=== PATIENT | female | born 1960 | race African-American/Black ===

== ENCOUNTER 2017-10-28 11:45 | Inpatient (IN) ==
[2017-11-01 16:10] VITALS: BP 99/63
== END 2017-11-01 17:00 | disposition home or self-care (01) | DRG 309 ==
LOC: INTOOBSV 20:30 → N.CC 20:30 → N.TELES 10-30 17:54
PROVIDERS: ADMIT Internal Medicine Clinical Cardiac Electrophysiology; ATTEND Internal Medicine Clinical Cardiac Electrophysiology

== ENCOUNTER 2018-08-16 17:03 | Observation (INO) ==
[2018-08-16] MEDS ORDERED: MORPHINE 4 MG/1 ML VIAL IV STA (18:10)
[2018-08-16] MEDS ORDERED: NITROGLYCERIN 2% OINT 1 INCH/GM PACK TOP STA (18:10)
[2018-08-16] MEDS ORDERED: ONDANSETRON 4 MG/2 ML VIAL IV STA (18:10)
[2018-08-16] MEDS ORDERED: ALUM/MAG/SIMETH/LIDO VISC 1:1 30 ML BOTTLE PO STA (18:10)
[2018-08-16] MEDS ORDERED: ASPIRIN 325 MG TABLET PO STA (18:10)
[2018-08-16 18:28] LABS: Basophils % 0.2 % (0.0-0.8); Eosinophils # 0.3 10*3/uL (0.0-0.87); Eosinophils % 2.5 % (0.00-10.9); Hemoglobin 7.2 GM/DL (12.0-16.0); Immature Granulocytes % 0.7 %; Immature Granulocytes Absolute 0.08 #; Lymphocytes # 2.3 10*3/uL (1.4-4.0); Lymphocytes % 18.9 % (21.3-54.2); Monocytes % 9.2 % (1.7-12.7); Neutrophils % 68.5 % (38.7-73.9); Platelet Count 341 T/CUMM (130-400); Red Blood Count 2.79 MC/CUMM (3.8-5.5); Red Cell Distribution Width 15.6 % (9.3-17.3); White Blood Count 12.2 T/CUMM (4-12)
[2018-08-16 18:31] LABS: Alanine Aminotransferase 13 U/L (13-56); Albumin 3.5 G/DL (3.4-5.0); Alkaline Phosphatase 85 U/L (45-117); Aspartate Amino Transferase 7 U/L (0-37); Bilirubin,Total < 0.39 MG/DL (0.2-1.0); Blood Urea Nitrogen 27 MG/DL (7-18); Calcium 8.8 MG/DL (8.5-10.1); Glucose 127 MG/DL (74-106); Total Protein 7.4 G/DL (6.4-8.3)
[2018-08-16 18:36] LABS: PT Patient Result 10.7 SECS
[2018-08-17] MEDS ORDERED: CYCLOBENZAPRINE 10 MG TABLET PO PRN (00:36)
[2018-08-17] MEDS ORDERED: ACETAMINOPHEN 325 MG TABLET PO PRN (00:36)
[2018-08-17] MEDS ORDERED: ONDANSETRON 4 MG/2 ML VIAL IV PRN (00:36)
[2018-08-17] MEDS ORDERED: FLUTICASONE 50 MCG NASAL SPRAY 16 GM BOTTLE BOTH NARES PRN (00:36)
[2018-08-17] MEDS ORDERED: tiZANidine 4 MG TABLET PO PRN (00:36)
[2018-08-17] MEDS ORDERED: NAPROXEN 250 MG TABLET PO PRN (00:36)
[2018-08-17] MEDS ORDERED: SODIUM CHLORIDE 0.9% 1,000 ML IV SCH (00:36)
[2018-08-17] MEDS: SACUBITRIL/VALSARTAN 49-51 MG TABLET PO SCH ×3 (02:03→20:58)
[2018-08-17] MEDS: CARVEDILOL 25 MG TABLET PO SCH ×3 (02:04→20:58)
[2018-08-17 05:37] LABS: Basophils % 0.5 % (0.0-0.8); Eosinophils # 0.2 10*3/uL (0.0-0.87); Eosinophils % 3.1 % (0.00-10.9); Hematocrit 22.9 VOL% (35.7-47.0); Hemoglobin 6.7 GM/DL (12.0-16.0); Immature Granulocytes % 0.6 %; Immature Granulocytes Absolute 0.05 #; Lymphocytes # 1.6 10*3/uL (1.4-4.0); Lymphocytes % 20.8 % (21.3-54.2); Mean Corpuscular HGB Conc 29.3 GM/DL (32-36); Mean Corpuscular Volume 86.7 FL (87-102); Mean Platelet Volume 8.8 FL (9.6-12.0); Monocytes % 11.6 % (1.7-12.7); Neutrophils % 63.4 % (38.7-73.9); Platelet Count 306 T/CUMM (130-400); Red Blood Count 2.64 MC/CUMM (3.8-5.5); Red Cell Distribution Width 15.6 % (9.3-17.3); White Blood Count 7.8 T/CUMM (4-12)
[2018-08-17 06:39] LABS: Risk Ratio 1.68; Thyroid Stimulating Hormone 2.18 uIU/ml (0.358-3.74); VLDL CHOLESTEROL 13.8 MG/DL
[2018-08-17 06:54] LABS: Blood Urea Nitrogen 22 MG/DL (7-18); Calcium 8.2 MG/DL (8.5-10.1); Glucose 94 MG/DL (74-106); Troponin I < 0.015 NG/ML (0.00-0.045)
[2018-08-17] MEDS ORDERED: ENOXAPARIN 40 MG/0.4 ML SYRINGE SUBCUT SCH (09:00)
[2018-08-17] MEDS: FERROUS SULFATE 325 MG TABLET PO SCH (09:24)
[2018-08-17] MEDS: PANTOPRAZOLE 40 MG TABLET PO SCH (09:25)
[2018-08-17] MEDS: MULTIVITAMIN (CENTRUM) TABLET PO SCH (09:25)
[2018-08-17] MEDS: SERTRALINE 100 MG TABLET PO SCH (09:25)
[2018-08-17] MEDS: LORATADINE 10 MG TABLET PO SCH (09:25)
[2018-08-17] MEDS: FUROSEMIDE 20 MG TABLET PO SCH (09:25)
[2018-08-17] MEDS: MAGNESIUM OXIDE 400 MG TABLET PO SCH (09:25)
[2018-08-17] MEDS: DIGESTIVE ADVANTAGE PO SCH (09:26)
[2018-08-17 09:28] LABS: % Iron Saturation 5.9 % (18-50)
[2018-08-17] MEDS: MESALAMINE 1.5 GM PO SCH (09:30)
[2018-08-17 09:35] LABS: Folate 14.9 NG/ML (5.4-24.0)
[2018-08-17] MEDS ORDERED: SODIUM CHLORIDE 0.9% 1,000 ML IV PRN (10:10)
[2018-08-17] MEDS ORDERED: BISACODYL 5 MG TABLET PO ONE (12:00)
[2018-08-17] MEDS ORDERED: POLYETHYLENE GLYCOL POWDER 255 GM BOTTLE PO ONE (18:00)
[2018-08-17 21:34] LABS: Hematocrit 29.8 VOL% (35.7-47.0); Hemoglobin 9.1 GM/DL (12.0-16.0)
[2018-08-18 06:03] LABS: PT Patient Result 10.9 SECS
[2018-08-18 06:05] LABS: Basophils % 0.5 % (0.0-0.8); Eosinophils # 0.3 10*3/uL (0.0-0.87); Eosinophils % 3.6 % (0.00-10.9); Hematocrit 30.8 VOL% (35.7-47.0); Hemoglobin 9.3 GM/DL (12.0-16.0); Immature Granulocytes % 0.5 %; Immature Granulocytes Absolute 0.04 #; Lymphocytes # 1.8 10*3/uL (1.4-4.0); Mean Corpuscular HGB Conc 30.2 GM/DL (32-36); Mean Corpuscular Volume 88.3 FL (87-102); Mean Platelet Volume 8.8 FL (9.6-12.0); Neutrophils % 63.4 % (38.7-73.9); Platelet Count 297 T/CUMM (130-400); Red Blood Count 3.49 MC/CUMM (3.8-5.5); Red Cell Distribution Width 14.9 % (9.3-17.3); White Blood Count 8.9 T/CUMM (4-12)
[2018-08-18 06:09] LABS: Calcium 8.6 MG/DL (8.5-10.1); Osmolality,Calculated 287.8 MOS/KG (273-304)
[2018-08-18] MEDS ORDERED: LACTATED RINGERS 500 ML IV SCH (08:00)
[2018-08-18] MEDS ORDERED: LIDOCAINE 100 MG/5 ML SYRINGE ONE (09:59)
[2018-08-18] MEDS ORDERED: PROPOFOL 200 MG/20 ML VIAL IV ONE (09:59)
[2018-08-18] MEDS ORDERED: PHENYLEPHRINE 1 MG/10 ML SYRINGE IV ONE (09:59)
[2018-08-18] MEDS ORDERED: ETOMIDATE 20 MG/10 ML VIAL IV ONE (09:59)
[2018-08-18] MEDS ORDERED: POLYETHYLENE GLYCOL POWDER 255 GM BOTTLE PO ONE (12:00)
[2018-08-18] MEDS: FERROUS SULFATE 325 MG TABLET PO SCH (12:18)
[2018-08-18] MEDS: SERTRALINE 100 MG TABLET PO SCH (12:18)
[2018-08-18] MEDS: MAGNESIUM OXIDE 400 MG TABLET PO SCH (12:18)
[2018-08-18] MEDS: SACUBITRIL/VALSARTAN 49-51 MG TABLET PO SCH ×2 (12:18→21:38)
[2018-08-18] MEDS: PANTOPRAZOLE 40 MG TABLET PO SCH (12:18)
[2018-08-18] MEDS: CARVEDILOL 25 MG TABLET PO SCH ×2 (12:18→21:37)
[2018-08-18] MEDS: LORATADINE 10 MG TABLET PO SCH (12:18)
[2018-08-18] MEDS: MULTIVITAMIN (CENTRUM) TABLET PO SCH (12:18)
[2018-08-18] MEDS: FUROSEMIDE 20 MG TABLET PO SCH (12:18)
[2018-08-18] MEDS: MESALAMINE 1.5 GM PO SCH (12:19)
[2018-08-18] MEDS: DIGESTIVE ADVANTAGE PO SCH (12:19)
[2018-08-19] MEDS ORDERED: LACTATED RINGERS 500 ML IV SCH (08:00)
[2018-08-19] MEDS: FUROSEMIDE 20 MG TABLET PO SCH (09:00)
[2018-08-19] MEDS ORDERED: PROPOFOL 200 MG/20 ML VIAL IV ONE (09:00)
[2018-08-19] MEDS ORDERED: LIDOCAINE 1% 5 ML VIAL ONE (09:00)
[2018-08-19] MEDS: SACUBITRIL/VALSARTAN 49-51 MG TABLET PO SCH (09:00)
[2018-08-19] MEDS: LORATADINE 10 MG TABLET PO SCH (09:00)
[2018-08-19] MEDS: MAGNESIUM OXIDE 400 MG TABLET PO SCH (09:00)
[2018-08-19] MEDS: SERTRALINE 100 MG TABLET PO SCH (09:00)
[2018-08-19] MEDS: DIGESTIVE ADVANTAGE PO SCH (09:00)
[2018-08-19] MEDS: CARVEDILOL 25 MG TABLET PO SCH (09:00)
[2018-08-19] MEDS: FERROUS SULFATE 325 MG TABLET PO SCH (09:00)
[2018-08-19] MEDS: PANTOPRAZOLE 40 MG TABLET PO SCH (09:00)
[2018-08-19] MEDS: MESALAMINE 1.5 GM PO SCH (09:00)
[2018-08-19] MEDS: MULTIVITAMIN (CENTRUM) TABLET PO SCH (09:00)
[2018-08-19 12:25] LABS: % Iron Saturation 11.4 % (18-50); Ferritin 255.3 ng/ml (8-252)
[2018-08-19 13:15] LABS: Folate > 24.0 NG/ML (5.4-24.0); Vitamin B12 371 PG/ML (211-911)
[2018-08-19 16:06] VITALS: BP 112/71
== END 2018-08-19 17:00 | disposition home or self-care (01) ==
LOC: EDUNIT# → N.EDINP 17:03 → N.ED 17:03 → SUATTDRO 19:34 → N.TELES 23:10
PROVIDERS: ADMIT Internal Medicine; ATTEND Hospitalist
PROC: COLONBX (2018-08-18 08:35)

== ENCOUNTER 2018-09-06 19:03 | Inpatient (IN) ==
[2018-09-06 20:29] LABS: Basophils % 0.5 % (0.0-0.8); Eosinophils # 0.2 10*3/uL (0.0-0.87); Eosinophils % 2.7 % (0.00-10.9); Hematocrit 30.3 VOL% (35.7-47.0); Hemoglobin 9.5 GM/DL (12.0-16.0); Immature Granulocytes % 0.2 %; Immature Granulocytes Absolute 0.02 #; Lymphocytes # 2.2 10*3/uL (1.4-4.0); Lymphocytes % 26.2 % (21.3-54.2); Mean Corpuscular HGB Conc 31.4 GM/DL (32-36); Mean Corpuscular Volume 84.9 FL (87-102); Mean Platelet Volume 9.3 FL (9.6-12.0); Monocytes % 7.8 % (1.7-12.7); Neutrophils % 62.6 % (38.7-73.9); Platelet Count 370 T/CUMM (130-400); Red Blood Count 3.57 MC/CUMM (3.8-5.5); Red Cell Distribution Width 15.1 % (9.3-17.3); White Blood Count 8.6 T/CUMM (4-12)
[2018-09-06 20:53] LABS: Alanine Aminotransferase 15 U/L (13-56); Albumin 3.4 G/DL (3.4-5.0); Alkaline Phosphatase 97 U/L (45-117); Aspartate Amino Transferase 9 U/L (0-37); Bilirubin,Total < 0.39 MG/DL (0.2-1.0); Blood Urea Nitrogen 26 MG/DL (7-18); Calcium 9.5 MG/DL (8.5-10.1); Glucose 114 MG/DL (74-106); Osmolality,Calculated 286.3 MOS/KG (273-304); Total Protein 8.1 G/DL (6.4-8.3)
[2018-09-06 21:08] LABS: Barbiturates Screen,Urine Negative (Negative); Benzodiazepines Screen,Urine Negative (Negative); Cannabinoid Screen,Urine Negative (Negative); Opiate Screen,Urine Negative (Negative); Phencyclidine Screen,Urine Negative (Negative)
[2018-09-06] MEDS ORDERED: AMIODARONE INJ 450 MG in DEXTROSE 5% 241 ML IV SCH (23:45)
[2018-09-06] MEDS ORDERED: AMIODARONE INJ 150 MG in DEXTROSE 5% 100 ML IV ONE (23:54)
[2018-09-06] MEDS ORDERED: MAGNESIUM SULF RIDER 2 GM in PREMIX 1 EACH IV PRN (23:57)
[2018-09-06] MEDS ORDERED: POTASSIUM CHLORIDE 20 MEQ TABLET PO STA (23:57)
[2018-09-06] MEDS ORDERED: MAGNESIUM SULF RIDER 4 GM in PREMIX 1 EACH IV PRN (23:57)
[2018-09-07] MEDS ORDERED: AMIODARONE 450 MG/9 ML VIAL IV ONE (00:11)
[2018-09-07] MEDS ORDERED: AMIODARONE INJ 450 MG in DEXTROSE 5% 241 ML IV SCH (08:30)
[2018-09-07] MEDS ORDERED: tiZANidine 4 MG TABLET PO PRN (11:48)
[2018-09-07] MEDS ORDERED: FLUTICASONE 50 MCG NASAL SPRAY 16 GM BOTTLE BOTH NARES PRN (11:48)
[2018-09-07] MEDS ORDERED: NAPROXEN 250 MG TABLET PO PRN (11:48)
[2018-09-07] MEDS ORDERED: CYCLOBENZAPRINE 10 MG TABLET PO PRN (11:48)
[2018-09-07] MEDS ORDERED: POTASSIUM CHLORIDE 20 MEQ TABLET PO ONE (11:49)
[2018-09-07] MEDS ORDERED: GLUCAGON 1 MG VIAL IM PRN (11:51)
[2018-09-07] MEDS ORDERED: DEXTROSE 50% 25 GM/50 ML SYRINGE IV PRN (11:51)
[2018-09-07] MEDS ORDERED: DIGESTIVE ADVANTAGE PO SCH (12:00)
[2018-09-07] MEDS: FUROSEMIDE 20 MG TABLET PO SCH (13:28)
[2018-09-07] MEDS: PANTOPRAZOLE 40 MG TABLET PO SCH (13:28)
[2018-09-07] MEDS: MULTIVITAMIN (CENTRUM) TABLET PO SCH (13:29)
[2018-09-07] MEDS: FERROUS SULFATE 325 MG TABLET PO SCH (13:29)
[2018-09-07] MEDS: metFORMIN 500 MG TABLET PO SCH ×2 (13:29→21:20)
[2018-09-07] MEDS: LORATADINE 10 MG TABLET PO SCH (13:29)
[2018-09-07] MEDS: CARVEDILOL 25 MG TABLET PO SCH ×2 (13:29→21:19)
[2018-09-07] MEDS: SERTRALINE 100 MG TABLET PO SCH (13:29)
[2018-09-07] MEDS: SACUBITRIL/VALSARTAN 49-51 MG TABLET PO SCH ×2 (13:30→21:20)
[2018-09-07] MEDS: MAGNESIUM OXIDE 400 MG TABLET PO SCH (13:36)
[2018-09-07] MEDS: INSULIN LISPRO 100 UNIT/ML SUBCUT SCH ×2 (16:13→21:44)
[2018-09-07] MEDS: MESALAMINE 800 MG TABLET PO SCH ×2 (16:30→21:21)
[2018-09-07] MEDS: AMIODARONE 200 MG TABLET PO SCH (21:21)
[2018-09-08] MEDS ORDERED: ALUM/MAG/SIMETH/LIDO VISC 1:1 30 ML BOTTLE PO ONE (00:22)
[2018-09-08] MEDS ORDERED: ALUMINUM/MAGNES/SIMETH MAX STR 30 ML UDCUP PO PRN (00:23)
[2018-09-08 03:13] LABS: Basophils % 0.3 % (0.0-0.8); Eosinophils # 0.3 10*3/uL (0.0-0.87); Eosinophils % 2.9 % (0.00-10.9); Hematocrit 28.6 VOL% (35.7-47.0); Hemoglobin 8.6 GM/DL (12.0-16.0); Immature Granulocytes % 0.4 %; Immature Granulocytes Absolute 0.04 #; Lymphocytes # 2.5 10*3/uL (1.4-4.0); Mean Corpuscular HGB Conc 30.1 GM/DL (32-36); Mean Corpuscular Volume 86.9 FL (87-102); Mean Platelet Volume 9.3 FL (9.6-12.0); Monocytes % 9.6 % (1.7-12.7); Neutrophils % 59.8 % (38.7-73.9); Platelet Count 302 T/CUMM (130-400); Red Blood Count 3.29 MC/CUMM (3.8-5.5); Red Cell Distribution Width 15.3 % (9.3-17.3); White Blood Count 9.2 T/CUMM (4-12)
[2018-09-08 03:45] LABS: Alanine Aminotransferase 15 U/L (13-56); Albumin 2.9 G/DL (3.4-5.0); Alkaline Phosphatase 79 U/L (45-117); Aspartate Amino Transferase 11 U/L (0-37); Bilirubin,Direct < 0.100 MG/DL (0.0-0.20); Bilirubin,Indirect 0.3 MG/DL (0.0-1.0); Bilirubin,Total < 0.39 MG/DL (0.2-1.0); Blood Urea Nitrogen 22 MG/DL (7-18); Calcium 8.9 MG/DL (8.5-10.1); Glucose 96 MG/DL (74-106); Osmolality,Calculated 285.1 MOS/KG (273-304); Total Protein 6.9 G/DL (6.4-8.3)
[2018-09-08] MEDS: INSULIN LISPRO 100 UNIT/ML SUBCUT SCH ×4 (08:43→20:21)
[2018-09-08] MEDS: LORATADINE 10 MG TABLET PO SCH (08:44)
[2018-09-08] MEDS: CARVEDILOL 25 MG TABLET PO SCH ×2 (08:44→20:23)
[2018-09-08] MEDS: MULTIVITAMIN (CENTRUM) TABLET PO SCH (08:45)
[2018-09-08] MEDS: FERROUS SULFATE 325 MG TABLET PO SCH (08:45)
[2018-09-08] MEDS: AMIODARONE 200 MG TABLET PO SCH ×2 (08:45→20:23)
[2018-09-08] MEDS: PANTOPRAZOLE 40 MG TABLET PO SCH (08:45)
[2018-09-08] MEDS: MESALAMINE 800 MG TABLET PO SCH ×3 (08:46→20:22)
[2018-09-08] MEDS: SERTRALINE 100 MG TABLET PO SCH (08:46)
[2018-09-08] MEDS: SACUBITRIL/VALSARTAN 49-51 MG TABLET PO SCH ×2 (08:48→20:22)
[2018-09-08] MEDS: MAGNESIUM OXIDE 400 MG TABLET PO SCH (08:48)
[2018-09-08] MEDS: metFORMIN 500 MG TABLET PO SCH ×2 (08:48→20:23)
[2018-09-08] MEDS: FUROSEMIDE 20 MG TABLET PO SCH (08:48)
[2018-09-09 04:59] LABS: Calcium 9.1 MG/DL (8.5-10.1); Osmolality,Calculated 286.1 MOS/KG (273-304)
[2018-09-09] MEDS ORDERED: metFORMIN 500 MG TABLET PO SCH (07:09)
[2018-09-09] MEDS ORDERED: predniSONE 20 MG TABLET PO SCH (09:00)
[2018-09-09] MEDS: AMIODARONE 200 MG TABLET PO SCH (09:47)
[2018-09-09] MEDS: LORATADINE 10 MG TABLET PO SCH (09:47)
[2018-09-09] MEDS: PANTOPRAZOLE 40 MG TABLET PO SCH (09:47)
[2018-09-09] MEDS: SACUBITRIL/VALSARTAN 49-51 MG TABLET PO SCH (09:47)
[2018-09-09] MEDS: CARVEDILOL 25 MG TABLET PO SCH (09:47)
[2018-09-09] MEDS: MULTIVITAMIN (CENTRUM) TABLET PO SCH (09:48)
[2018-09-09] MEDS: MAGNESIUM OXIDE 400 MG TABLET PO SCH (09:48)
[2018-09-09] MEDS: FERROUS SULFATE 325 MG TABLET PO SCH (09:48)
[2018-09-09] MEDS: MESALAMINE 800 MG TABLET PO SCH (09:48)
[2018-09-09] MEDS: SERTRALINE 100 MG TABLET PO SCH (09:51)
[2018-09-09] MEDS: INSULIN LISPRO 100 UNIT/ML SUBCUT SCH (10:16)
[2018-09-09 12:49] VITALS: BP 141/70
== END 2018-09-09 15:29 | disposition home health service (06) | DRG 309 ==
LOC: EDBD → EDUNIT# → N.EDINP 19:03 → N.ED 19:03 → N.TELES 09-07 00:28
PROVIDERS: ADMIT Internal Medicine Clinical Cardiac Electrophysiology; ATTEND Internal Medicine Clinical Cardiac Electrophysiology

== ENCOUNTER 2019-06-01 18:05 | Observation (INO) ==
[2019-06-01] MEDS ORDERED: ASPIRIN 325 MG TABLET PO STA (18:36)
[2019-06-01 18:45] LABS: Basophils % 0.4 % (0.0-0.8); Eosinophils # 0.2 10*3/uL (0.0-0.87); Hematocrit 32.4 VOL% (35.7-47.0); Immature Granulocytes % 0.4 %; Immature Granulocytes Absolute 0.03 #; Lymphocytes # 2.9 10*3/uL (1.4-4.0); Lymphocytes % 35.8 % (21.3-54.2); Mean Corpuscular HGB Conc 30.9 GM/DL (32-36); Mean Corpuscular Volume 82.9 FL (87-102); Mean Platelet Volume 9.7 FL (9.6-12.0); Monocytes % 7.7 % (1.7-12.7); Neutrophils % 52.7 % (38.7-73.9); Platelet Count 276 T/CUMM (130-400); Red Blood Count 3.91 MC/CUMM (3.8-5.5); Red Cell Distribution Width 14.7 % (9.3-17.3); White Blood Count 8.1 T/CUMM (4-12)
[2019-06-01 19:02] LABS: Alanine Aminotransferase 14 U/L (13-56); Alkaline Phosphatase 136 U/L (45-117); Aspartate Amino Transferase 14 U/L (0-37); Bilirubin,Total < 0.39 MG/DL (0.2-1.0); Blood Urea Nitrogen 20 MG/DL (7-18); Calcium 8.9 MG/DL (8.5-10.1); Estimated Glom Filtration Rate 39 ML/MIN; Glucose 151 MG/DL (74-106); Osmolality,Calculated 280.7 MOS/KG (273-304); Total Protein 7.9 G/DL (6.4-8.3)
[2019-06-01] MEDS ORDERED: GLUCAGON 1 MG VIAL IM PRN (20:43)
[2019-06-01] MEDS ORDERED: DEXTROSE 10% 250 ML BAG IV PRN (20:43)
[2019-06-01] MEDS: INSULIN LISPRO 100 UNIT/ML SUBCUT SCH (23:04)
[2019-06-01] MEDS: MESALAMINE 800 MG TABLET PO SCH (23:04)
[2019-06-02 04:58] LABS: Basophils % 0.6 % (0.0-0.8); Eosinophils # 0.2 10*3/uL (0.0-0.87); Eosinophils % 3.5 % (0.00-10.9); Hematocrit 31.4 VOL% (35.7-47.0); Hemoglobin 9.6 GM/DL (12.0-16.0); Immature Granulocytes % 0.4 %; Immature Granulocytes Absolute 0.03 #; Lymphocytes # 1.7 10*3/uL (1.4-4.0); Lymphocytes % 24.5 % (21.3-54.2); Mean Corpuscular HGB Conc 30.6 GM/DL (32-36); Mean Corpuscular Volume 83.5 FL (87-102); Mean Platelet Volume 10.1 FL (9.6-12.0); Monocytes % 9.1 % (1.7-12.7); Neutrophils % 61.9 % (38.7-73.9); Platelet Count 260 T/CUMM (130-400); Red Blood Count 3.76 MC/CUMM (3.8-5.5); Red Cell Distribution Width 14.7 % (9.3-17.3); White Blood Count 6.8 T/CUMM (4-12)
[2019-06-02 05:30] LABS: Calcium 8.7 MG/DL (8.5-10.1); Osmolality,Calculated 284.3 MOS/KG (273-304)
[2019-06-02] MEDS: SERTRALINE 100 MG TABLET PO SCH (09:42)
[2019-06-02] MEDS: MESALAMINE 800 MG TABLET PO SCH ×3 (09:42→20:40)
[2019-06-02] MEDS: AMIODARONE 200 MG TABLET PO SCH (09:42)
[2019-06-02] MEDS: SACUBITRIL/VALSARTAN 49-51 MG TABLET PO SCH ×2 (09:43→20:40)
[2019-06-02] MEDS: carvediloL 12.5 MG TABLET PO SCH (09:43)
[2019-06-02] MEDS: ASPIRIN EC 81 MG TABLET PO SCH (09:43)
[2019-06-02] MEDS: FUROSEMIDE 20 MG TABLET PO SCH (09:43)
[2019-06-02] MEDS: FERROUS SULFATE 325 MG TABLET PO SCH (09:44)
[2019-06-02] MEDS: INSULIN LISPRO 100 UNIT/ML SUBCUT SCH ×4 (09:57→20:43)
[2019-06-02 11:28] LABS: Barbiturates Screen,Urine Negative (Negative); Benzodiazepines Screen,Urine Negative (Negative); Cannabinoid Screen,Urine Negative (Negative); Opiate Screen,Urine Negative (Negative); Phencyclidine Screen,Urine Negative (Negative)
[2019-06-02] MEDS: MEXILETINE 150 MG CAPSULE PO SCH ×2 (15:06→21:00)
[2019-06-02] MEDS ORDERED: ALUMINUM/MAGNES/SIMETH MAX STR 30 ML UDCUP PO PRN (20:28)
[2019-06-03 01:02] LABS: Calcium 8.6 MG/DL (8.5-10.1); Osmolality,Calculated 278.5 MOS/KG (273-304)
[2019-06-03 01:15] LABS: Basophils % 0.4 % (0.0-0.8); Eosinophils # 0.3 10*3/uL (0.0-0.87); Eosinophils % 3.6 % (0.00-10.9); Hematocrit 30.8 VOL% (35.7-47.0); Hemoglobin 9.3 GM/DL (12.0-16.0); Immature Granulocytes % 0.3 %; Immature Granulocytes Absolute 0.02 #; Lymphocytes # 2.2 10*3/uL (1.4-4.0); Lymphocytes % 31.2 % (21.3-54.2); Mean Corpuscular HGB Conc 30.2 GM/DL (32-36); Mean Corpuscular Volume 84.4 FL (87-102); Mean Platelet Volume 10.3 FL (9.6-12.0); Monocytes % 6.8 % (1.7-12.7); Neutrophils % 57.7 % (38.7-73.9); Platelet Count 276 T/CUMM (130-400); Red Blood Count 3.65 MC/CUMM (3.8-5.5); Red Cell Distribution Width 14.7 % (9.3-17.3)
[2019-06-03] MEDS: MEXILETINE 150 MG CAPSULE PO SCH ×3 (05:19→21:21)
[2019-06-03] MEDS: ASPIRIN EC 81 MG TABLET PO SCH (09:37)
[2019-06-03] MEDS: MESALAMINE 800 MG TABLET PO SCH ×3 (09:37→21:21)
[2019-06-03] MEDS: SERTRALINE 100 MG TABLET PO SCH (09:37)
[2019-06-03] MEDS: AMIODARONE 200 MG TABLET PO SCH (09:37)
[2019-06-03] MEDS: FUROSEMIDE 20 MG TABLET PO SCH (09:37)
[2019-06-03] MEDS: SACUBITRIL/VALSARTAN 49-51 MG TABLET PO SCH ×2 (09:37→21:21)
[2019-06-03] MEDS: FERROUS SULFATE 325 MG TABLET PO SCH (09:37)
[2019-06-03] MEDS: carvediloL 12.5 MG TABLET PO SCH (09:38)
[2019-06-03] MEDS: INSULIN LISPRO 100 UNIT/ML SUBCUT SCH ×4 (09:50→21:22)
[2019-06-04 05:48] LABS: Basophils % 0.4 % (0.0-0.8); Eosinophils # 0.2 10*3/uL (0.0-0.87); Eosinophils % 3.2 % (0.00-10.9); Hematocrit 32.4 VOL% (35.7-47.0); Hemoglobin 9.6 GM/DL (12.0-16.0); Immature Granulocytes % 0.1 %; Immature Granulocytes Absolute 0.01 #; Lymphocytes # 1.8 10*3/uL (1.4-4.0); Lymphocytes % 24.1 % (21.3-54.2); Mean Corpuscular HGB Conc 29.6 GM/DL (32-36); Mean Corpuscular Volume 84.2 FL (87-102); Monocytes % 7.6 % (1.7-12.7); Neutrophils % 64.6 % (38.7-73.9); Platelet Count 270 T/CUMM (130-400); Red Blood Count 3.85 MC/CUMM (3.8-5.5); Red Cell Distribution Width 14.8 % (9.3-17.3); White Blood Count 7.5 T/CUMM (4-12)
[2019-06-04 06:02] LABS: Calcium 8.8 MG/DL (8.5-10.1); Osmolality,Calculated 284.3 MOS/KG (273-304)
[2019-06-04] MEDS: MEXILETINE 150 MG CAPSULE PO SCH (06:30)
[2019-06-04 08:08] VITALS: BP 169/79
[2019-06-04] MEDS: ASPIRIN EC 81 MG TABLET PO SCH (08:42)
[2019-06-04] MEDS: carvediloL 12.5 MG TABLET PO SCH (08:42)
[2019-06-04] MEDS: SERTRALINE 100 MG TABLET PO SCH (08:42)
[2019-06-04] MEDS: SACUBITRIL/VALSARTAN 49-51 MG TABLET PO SCH (08:42)
[2019-06-04] MEDS: FERROUS SULFATE 325 MG TABLET PO SCH (08:42)
[2019-06-04] MEDS: AMIODARONE 200 MG TABLET PO SCH (08:42)
[2019-06-04] MEDS: FUROSEMIDE 20 MG TABLET PO SCH (08:42)
[2019-06-04] MEDS: MESALAMINE 800 MG TABLET PO SCH (08:42)
== END 2019-06-04 08:58 | disposition home or self-care (01) ==
LOC: EDUNIT# → N.TELEN 18:05 → N.ED 18:05 → N.TELEN 21:10
PROVIDERS: ADMIT Internal Medicine; ATTEND Internal Medicine

== ENCOUNTER 2020-02-28 05:58 | Observation (INO) ==
[2020-02-28 06:52] LABS: Basophils % 0.2 % (0.0-0.8); Eosinophils # 0.1 10*3/uL (0.0-0.87); Eosinophils % 0.9 % (0.00-10.9); Hematocrit 32.5 VOL% (35.7-47.0); Hemoglobin 9.9 GM/DL (12.0-16.0); Immature Granulocytes % 0.7 %; Immature Granulocytes Absolute 0.06 #; Lymphocytes % 21.8 % (21.3-54.2); Mean Corpuscular HGB Conc 30.5 GM/DL (32-36); Mean Corpuscular Volume 81.5 FL (87-102); Mean Platelet Volume 9.6 FL (9.6-12.0); Monocytes % 10.2 % (1.7-12.7); Neutrophils % 66.2 % (38.7-73.9); Platelet Count 375 T/CUMM (130-400); Red Blood Count 3.99 MC/CUMM (3.8-5.5); Red Cell Distribution Width 13.8 % (9.3-17.3); White Blood Count 9.1 T/CUMM (4-12)
[2020-02-28 07:07] LABS: Alanine Aminotransferase 19 U/L (13-56); Albumin 3.3 G/DL (3.4-5.0); Alkaline Phosphatase 124 U/L (45-117); Aspartate Amino Transferase 16 U/L (0-37); Blood Urea Nitrogen 21 MG/DL (7-18); Calcium 9.4 MG/DL (8.5-10.1); Estimated Glom Filtration Rate 50 ML/MIN; Glucose 158 MG/DL (74-106); Osmolality,Calculated 288.1 MOS/KG (273-304); Thyroid Stimulating Hormone < 0.005 uIU/ml (0.358-3.74); Total Protein 7.5 G/DL (6.4-8.3)
[2020-02-28] MEDS ORDERED: traMADol 50 MG TABLET PO PRN (08:12)
[2020-02-28] MEDS ORDERED: AMIODARONE 200 MG TABLET PO SCH (09:00)
[2020-02-28] MEDS: ASPIRIN CHEW 81 MG TABLET PO SCH (09:19)
[2020-02-28] MEDS: FUROSEMIDE 20 MG TABLET PO SCH (09:19)
[2020-02-28] MEDS ORDERED: DEXTROSE 50% 25 GM/50 ML VIAL IV PRN (10:01)
[2020-02-28] MEDS ORDERED: GLUCAGON 1 MG VIAL IM PRN (10:01)
[2020-02-28] MEDS ORDERED: ONDANSETRON 4 MG/2 ML VIAL IV PRN (10:01)
[2020-02-28] MEDS: INSULIN LISPRO 100 UNIT/ML SUBCUT SCH ×3 (11:54→21:32)
[2020-02-28] MEDS: ENOXAPARIN 30 MG/0.3 ML SYRINGE SUBCUT SCH (12:10)
[2020-02-28] MEDS: ASCORBIC ACID 500 MG TABLET PO SCH ×2 (12:42→20:39)
[2020-02-28] MEDS: SACUBITRIL/VALSARTAN 49-51 MG TABLET PO SCH ×2 (12:42→20:39)
[2020-02-28] MEDS: PROPRANOLOL 10 MG TABLET PO SCH ×2 (12:42→20:40)
[2020-02-28] MEDS: MEXILETINE 150 MG CAPSULE PO SCH ×2 (14:45→21:00)
[2020-02-28] MEDS ORDERED: ALUMINUM/MAGNES/SIMETH MAX STR 30 ML UDCUP PO PRN (21:28)
[2020-02-29 05:31] LABS: Basophils % 0.4 % (0.0-0.8); Eosinophils # 0.1 10*3/uL (0.0-0.87); Eosinophils % 1.3 % (0.00-10.9); Hemoglobin 9.2 GM/DL (12.0-16.0); Immature Granulocytes % 0.5 %; Immature Granulocytes Absolute 0.04 #; Lymphocytes # 2.1 10*3/uL (1.4-4.0); Mean Corpuscular HGB Conc 30.7 GM/DL (32-36); Mean Corpuscular Volume 81.1 FL (87-102); Mean Platelet Volume 9.7 FL (9.6-12.0); Monocytes % 10.9 % (1.7-12.7); Neutrophils % 58.9 % (38.7-73.9); Platelet Count 342 T/CUMM (130-400); Red Cell Distribution Width 13.8 % (9.3-17.3); White Blood Count 7.6 T/CUMM (4-12)
[2020-02-29 05:50] LABS: Calcium 9.6 MG/DL (8.5-10.1); Osmolality,Calculated 285.1 MOS/KG (273-304); Risk Ratio 1.79; VLDL CHOLESTEROL 19.2 MG/DL
[2020-02-29] MEDS: MEXILETINE 150 MG CAPSULE PO SCH ×3 (06:25→21:00)
[2020-02-29] MEDS: INSULIN LISPRO 100 UNIT/ML SUBCUT SCH ×4 (08:09→22:12)
[2020-02-29] MEDS: SACUBITRIL/VALSARTAN 49-51 MG TABLET PO SCH ×2 (09:14→20:47)
[2020-02-29] MEDS: PROPRANOLOL 10 MG TABLET PO SCH ×2 (09:14→20:48)
[2020-02-29] MEDS: ASCORBIC ACID 500 MG TABLET PO SCH ×2 (09:14→20:47)
[2020-02-29] MEDS: ASPIRIN CHEW 81 MG TABLET PO SCH (09:14)
[2020-02-29] MEDS: FUROSEMIDE 20 MG TABLET PO SCH (09:14)
[2020-02-29] MEDS: ENOXAPARIN 30 MG/0.3 ML SYRINGE SUBCUT SCH ×2 (09:14→10:51)
[2020-03-01 05:52] LABS: Basophils % 0.3 % (0.0-0.8); Eosinophils # 0.1 10*3/uL (0.0-0.87); Eosinophils % 1.3 % (0.00-10.9); Hematocrit 28.8 VOL% (35.7-47.0); Hemoglobin 8.9 GM/DL (12.0-16.0); Immature Granulocytes % 0.4 %; Immature Granulocytes Absolute 0.03 #; Lymphocytes # 2.1 10*3/uL (1.4-4.0); Lymphocytes % 29.5 % (21.3-54.2); Mean Corpuscular HGB Conc 30.9 GM/DL (32-36); Mean Corpuscular Volume 81.4 FL (87-102); Mean Platelet Volume 9.3 FL (9.6-12.0); Neutrophils % 56.5 % (38.7-73.9); Platelet Count 293 T/CUMM (130-400); Red Blood Count 3.54 MC/CUMM (3.8-5.5); Red Cell Distribution Width 13.6 % (9.3-17.3)
[2020-03-01] MEDS: MEXILETINE 150 MG CAPSULE PO SCH (06:01)
[2020-03-01 06:10] LABS: Calcium 9.3 MG/DL (8.5-10.1)
[2020-03-01] MEDS: ASCORBIC ACID 500 MG TABLET PO SCH (09:43)
[2020-03-01] MEDS: FUROSEMIDE 20 MG TABLET PO SCH (09:44)
[2020-03-01] MEDS: ASPIRIN CHEW 81 MG TABLET PO SCH (09:44)
[2020-03-01] MEDS: PROPRANOLOL 10 MG TABLET PO SCH (09:44)
[2020-03-01] MEDS: SACUBITRIL/VALSARTAN 49-51 MG TABLET PO SCH (09:44)
[2020-03-01] MEDS: ENOXAPARIN 30 MG/0.3 ML SYRINGE SUBCUT SCH (09:47)
[2020-03-01] MEDS: INSULIN LISPRO 100 UNIT/ML SUBCUT SCH ×2 (09:49→12:19)
[2020-03-01 11:17] LABS: Thyroglob. AB < 1.8 IU/mL (<4.0)
[2020-03-01 12:34] VITALS: BP 114/51
== END 2020-03-01 14:06 | disposition home or self-care (01) ==
LOC: N.EDINP 05:58 → N.ED 05:58 → N.EDINP 12:58 → N.TELEN 13:05
PROVIDERS: ADMIT Emergency Medicine; ATTEND Emergency Medicine

== ENCOUNTER 2020-03-17 21:40 | Observation (INO) ==
[2020-03-17] MEDS ORDERED: ASPIRIN 325 MG TABLET PO STA (22:02)
[2020-03-17 22:10] LABS: Basophils % 0.2 % (0.0-0.8); Eosinophils # 0.1 10*3/uL (0.0-0.87); Eosinophils % 1.4 % (0.00-10.9); Hematocrit 28.2 VOL% (35.7-47.0); Hemoglobin 8.7 GM/DL (12.0-16.0); Immature Granulocytes % 0.2 %; Immature Granulocytes Absolute 0.02 #; Lymphocytes % 32.1 % (21.3-54.2); Mean Corpuscular HGB Conc 30.9 GM/DL (32-36); Mean Corpuscular Volume 80.1 FL (87-102); Mean Platelet Volume 9.4 FL (9.6-12.0); Monocytes % 11.3 % (1.7-12.7); Neutrophils % 54.8 % (38.7-73.9); Platelet Count 325 T/CUMM (130-400); Red Blood Count 3.52 MC/CUMM (3.8-5.5); Red Cell Distribution Width 13.9 % (9.3-17.3); White Blood Count 9.4 T/CUMM (4-12)
[2020-03-17 22:17] LABS: PT Patient Result 10.9 SECS (9.8-11.9)
[2020-03-17 22:27] LABS: Alanine Aminotransferase 15 U/L (13-56); Albumin 3.2 G/DL (3.4-5.0); Alkaline Phosphatase 109 U/L (45-117); Aspartate Amino Transferase 14 U/L (0-37); Bilirubin,Total < 0.39 MG/DL (0.2-1.0); Blood Urea Nitrogen 18 MG/DL (7-18); Calcium 9.3 MG/DL (8.5-10.1); Estimated Glom Filtration Rate 66 ML/MIN; Glucose 138 MG/DL (74-106); Osmolality,Calculated 286.1 MOS/KG (273-304); Total Protein 7.1 G/DL (6.4-8.3)
[2020-03-17 22:37] LABS: Bilirubin,Urine Negative (Negative); Blood, Urine Negative (Negative); Glucose,Urine (UA) Negative (Negative); Ketones,Urine Negative (Negative); Mucus,Urine Occasional /LPF (Occasional); Nitrite,Urine Negative (Negative); Protein,Urine Negative; RBC,Urine <1 /HPF (0-4); Squamous Epithelial Cell,Urine Occasional /HPF (0-10); Urine Appearance CLEAR (Clear); Urine Color Straw (Yellow); Urine Specific Gravity 1.005 (1.001-1.035); Urine Urobilinogen < 2.0 EU/DL (0.2-1.0); WBC,Urine 1 /HPF (0-6)
[2020-03-17 22:41] LABS: Hypochromasia 1+; Platelet Estimate Normal
[2020-03-17] MEDS ORDERED: ASPIRIN CHEW 81 MG TABLET PO STA (22:52)
[2020-03-17] MEDS ORDERED: ONDANSETRON 4 MG/2 ML VIAL IV PRN (22:52)
[2020-03-17 22:57] LABS: Barbiturates Screen,Urine Negative (Negative); Benzodiazepines Screen,Urine Negative (Negative); Cannabinoid Screen,Urine Negative (Negative); Opiate Screen,Urine Negative (Negative); Phencyclidine Screen,Urine Negative (Negative)
[2020-03-17] MEDS ORDERED: METOPROLOL TARTRATE 25 MG TABLET PO SCH (23:00)
[2020-03-18 06:19] LABS: Basophils % 0.3 % (0.0-0.8); Eosinophils # 0.1 10*3/uL (0.0-0.87); Eosinophils % 1.1 % (0.00-10.9); Hematocrit 27.8 VOL% (35.7-47.0); Hemoglobin 8.6 GM/DL (12.0-16.0); Immature Granulocytes % 0.3 %; Immature Granulocytes Absolute 0.02 #; Lymphocytes # 2.3 10*3/uL (1.4-4.0); Lymphocytes % 35.7 % (21.3-54.2); Mean Corpuscular HGB Conc 30.9 GM/DL (32-36); Mean Corpuscular Volume 80.8 FL (87-102); Mean Platelet Volume 9.6 FL (9.6-12.0); Monocytes % 13.4 % (1.7-12.7); Neutrophils % 49.2 % (38.7-73.9); Platelet Count 284 T/CUMM (130-400); Red Blood Count 3.44 MC/CUMM (3.8-5.5); Red Cell Distribution Width 13.9 % (9.3-17.3); White Blood Count 6.3 T/CUMM (4-12)
[2020-03-18 06:51] LABS: Alanine Aminotransferase 11 U/L (13-56); Albumin 2.8 G/DL (3.4-5.0); Alkaline Phosphatase 96 U/L (45-117); Aspartate Amino Transferase 15 U/L (0-37); Bilirubin,Total < 0.39 MG/DL (0.2-1.0); Blood Urea Nitrogen 16 MG/DL (7-18); Calcium 9.5 MG/DL (8.5-10.1); Estimated Glom Filtration Rate 66 ML/MIN; Glucose 83 MG/DL (74-106); Total Protein 6.9 G/DL (6.4-8.3)
[2020-03-18] MEDS ORDERED: traMADol 50 MG TABLET PO PRN (07:04)
[2020-03-18] MEDS ORDERED: GLUCAGON 1 MG VIAL IM PRN (07:38)
[2020-03-18] MEDS ORDERED: DEXTROSE 50% 25 GM/50 ML VIAL IV PRN (07:38)
[2020-03-18 07:39] LABS: Free T4 (Free Thyroxine) 5.46 NG/DL (0.76-1.46); Thyroid Stimulating Hormone < 0.005 uIU/ml (0.358-3.74)
[2020-03-18] MEDS ORDERED: PROPRANOLOL 10 MG TABLET PO SCH (09:00)
[2020-03-18] MEDS: SACUBITRIL/VALSARTAN 49-51 MG TABLET PO SCH ×2 (09:35→20:59)
[2020-03-18] MEDS: CHOLECALCIFEROL 1,000 UNIT TABLET PO SCH (09:35)
[2020-03-18] MEDS: FERROUS SULFATE 325 MG TABLET PO SCH (09:36)
[2020-03-18] MEDS: ASCORBIC ACID 500 MG TABLET PO SCH ×2 (09:36→20:59)
[2020-03-18] MEDS: PANTOPRAZOLE 40 MG TABLET PO SCH (09:37)
[2020-03-18] MEDS: POTASSIUM CHLORIDE 20 MEQ TABLET PO SCH (09:37)
[2020-03-18] MEDS: FUROSEMIDE 20 MG TABLET PO SCH (09:37)
[2020-03-18] MEDS: ASPIRIN CHEW 81 MG TABLET PO SCH (09:37)
[2020-03-18] MEDS: PROPRANOLOL 20 MG TABLET PO SCH ×2 (09:38→21:01)
[2020-03-18] MEDS ORDERED: MEXILETINE 150 MG CAPSULE PO ONE (10:17)
[2020-03-18] MEDS: MESALAMINE 800 MG TABLET PO SCH ×3 (12:39→21:00)
[2020-03-18] MEDS: INSULIN LISPRO 100 UNIT/ML SUBCUT SCH ×3 (12:39→21:03)
[2020-03-18] MEDS ORDERED: MEXILETINE 150 MG CAPSULE PO SCH (14:00)
[2020-03-18] MEDS: MEXILETINE 150 MG CAPSULE PO SCH ×3 (15:50→18:05)
[2020-03-19] MEDS: MEXILETINE 150 MG CAPSULE PO SCH ×2 (01:00→08:34)
[2020-03-19 03:38] LABS: Basophils % 0.3 % (0.0-0.8); Eosinophils # 0.1 10*3/uL (0.0-0.87); Hematocrit 28.4 VOL% (35.7-47.0); Hemoglobin 8.7 GM/DL (12.0-16.0); Immature Granulocytes % 0.3 %; Immature Granulocytes Absolute 0.02 #; Lymphocytes # 2.4 10*3/uL (1.4-4.0); Lymphocytes % 31.1 % (21.3-54.2); Mean Corpuscular HGB Conc 30.6 GM/DL (32-36); Mean Platelet Volume 9.3 FL (9.6-12.0); Monocytes % 11.8 % (1.7-12.7); Neutrophils % 55.5 % (38.7-73.9); Platelet Count 299 T/CUMM (130-400); Red Blood Count 3.55 MC/CUMM (3.8-5.5); Red Cell Distribution Width 13.7 % (9.3-17.3); White Blood Count 7.7 T/CUMM (4-12)
[2020-03-19 03:56] LABS: Calcium 9.1 MG/DL (8.5-10.1); Osmolality,Calculated 282.3 MOS/KG (273-304)
[2020-03-19] MEDS: INSULIN LISPRO 100 UNIT/ML SUBCUT SCH ×2 (08:32→11:58)
[2020-03-19] MEDS: PANTOPRAZOLE 40 MG TABLET PO SCH (08:34)
[2020-03-19] MEDS: CHOLECALCIFEROL 1,000 UNIT TABLET PO SCH (08:34)
[2020-03-19] MEDS: FERROUS SULFATE 325 MG TABLET PO SCH (08:34)
[2020-03-19] MEDS: POTASSIUM CHLORIDE 20 MEQ TABLET PO SCH (08:34)
[2020-03-19] MEDS: ASPIRIN CHEW 81 MG TABLET PO SCH (08:34)
[2020-03-19] MEDS: ASCORBIC ACID 500 MG TABLET PO SCH (08:34)
[2020-03-19] MEDS: MESALAMINE 800 MG TABLET PO SCH (08:34)
[2020-03-19] MEDS: FUROSEMIDE 20 MG TABLET PO SCH (08:35)
[2020-03-19] MEDS: SACUBITRIL/VALSARTAN 49-51 MG TABLET PO SCH (08:35)
[2020-03-19] MEDS: PROPRANOLOL 20 MG TABLET PO SCH (08:39)
[2020-03-19 12:36] VITALS: BP 98/63
[2020-03-19] MEDS ORDERED: PROPRANOLOL 20 MG TABLET PO SCH (21:00)
== END 2020-03-19 12:40 | disposition home or self-care (01) ==
LOC: N.EDINP 21:40 → N.ED 21:40 → N.TELEN 23:07
PROVIDERS: ADMIT Internal Medicine Cardiovascular Disease; ATTEND Internal Medicine Cardiovascular Disease

== ENCOUNTER 2020-10-24 12:15 | Observation (INO) ==
[2020-10-24 13:31] LABS: Basophils % 0.4 % (0.0-0.8); Eosinophils # 0.2 10*3/uL (0.0-0.87); Eosinophils % 2.3 % (0.00-10.9); Hemoglobin 11.6 GM/DL (12.0-16.0); Immature Granulocytes % 0.3 %; Immature Granulocytes Absolute 0.03 #; Lymphocytes # 2.6 10*3/uL (1.4-4.0); Lymphocytes % 27.9 % (21.3-54.2); Mean Corpuscular HGB Conc 30.5 GM/DL (32-36); Mean Corpuscular Volume 86.4 FL (87-102); Mean Platelet Volume 9.9 FL (9.6-12.0); Monocytes % 5.6 % (1.7-12.7); Neutrophils % 63.5 % (38.7-73.9); Platelet Count 292 T/CUMM (130-400); Red Cell Distribution Width 15.5 % (9.3-17.3); White Blood Count 9.2 T/CUMM (4-12)
[2020-10-24 14:02] LABS: Alanine Aminotransferase 20 U/L (13-56); Alkaline Phosphatase 162 U/L (45-117); Aspartate Amino Transferase 14 U/L (0-37); Bilirubin,Total < 0.39 MG/DL (0.20-1.00); Blood Urea Nitrogen 10 MG/DL (7-18); Calcium 8.9 MG/DL (8.5-10.1); Carbon Dioxide 25 MMOL/L (21-32); Estimated Glom Filtration Rate 60 ML/MIN; Glucose 72 MG/DL (74-106); Potassium 3.1 MMOL/L (3.5-5.1); Sodium 143 MMOL/L (136-145); Total Protein 8.2 G/DL (6.4-8.2)
[2020-10-24] MEDS ORDERED: POTASSIUM CHLORIDE 20 MEQ TABLET PO STA ×2 (14:11→17:14)
[2020-10-24] MEDS ORDERED: CALCIUM CARBONATE CHEW 500 MG TABLET PO PRN (16:58)
[2020-10-24] MEDS ORDERED: DEXTROSE 50% 25 GM/50 ML VIAL IV PRN (16:58)
[2020-10-24] MEDS ORDERED: ALBUTEROL/IPRATROPIUM 3 ML NEB RESP TX PRN (16:58)
[2020-10-24] MEDS ORDERED: hydrALAZINE 20 MG/1 ML VIAL IV PRN (16:58)
[2020-10-24] MEDS ORDERED: ONDANSETRON 4 MG/2 ML VIAL IV PRN (16:58)
[2020-10-24] MEDS ORDERED: ACETAMINOPHEN 325 MG TABLET PO PRN (16:58)
[2020-10-24] MEDS ORDERED: GLUCAGON 1 MG VIAL IM PRN (16:58)
[2020-10-24] MEDS ORDERED: DOCUSATE SODIUM 100 MG CAPSULE PO PRN (16:58)
[2020-10-24] MEDS ORDERED: ENOXAPARIN 40 MG/0.4 ML SYRINGE SUBCUT SCH (17:00)
[2020-10-24] MEDS ORDERED: MECLIZINE 25 MG TABLET PO PRN (17:12)
[2020-10-24] MEDS: ASCORBIC ACID 500 MG TABLET PO SCH (21:25)
[2020-10-24] MEDS: MEXILETINE 150 MG PO SCH (21:37)
[2020-10-24] MEDS: INSULIN LISPRO 100 UNIT/ML SUBCUT SCH (21:38)
[2020-10-24] MEDS: MESALAMINE 400 MG PO SCH (21:38)
[2020-10-25] MEDS: MEXILETINE 150 MG PO SCH (03:55)
[2020-10-25 05:15] LABS: Basophils % 0.5 % (0.0-0.8); Eosinophils # 0.3 10*3/uL (0.0-0.87); Eosinophils % 3.3 % (0.00-10.9); Hematocrit 36.3 VOL% (35.7-47.0); Hemoglobin 10.9 GM/DL (12.0-16.0); Immature Granulocytes % 0.4 %; Immature Granulocytes Absolute 0.03 #; Lymphocytes # 3.2 10*3/uL (1.4-4.0); Lymphocytes % 39.8 % (21.3-54.2); Mean Corpuscular Volume 87.7 FL (87-102); Mean Platelet Volume 10.2 FL (9.6-12.0); Monocytes % 7.8 % (1.7-12.7); Neutrophils % 48.2 % (38.7-73.9); Platelet Count 237 T/CUMM (130-400); Red Blood Count 4.14 MC/CUMM (3.8-5.5); Red Cell Distribution Width 15.6 % (9.3-17.3); White Blood Count 7.9 T/CUMM (4-12)
[2020-10-25 06:05] LABS: Alanine Aminotransferase 21 U/L (13-56); Albumin 3.3 G/DL (3.4-5.0); Alkaline Phosphatase 131 U/L (45-117); Aspartate Amino Transferase 12 U/L (0-37); Bilirubin,Total < 0.39 MG/DL (0.20-1.00); Blood Urea Nitrogen 11 MG/DL (7-18); Calcium 8.6 MG/DL (8.5-10.1); Carbon Dioxide 23 MMOL/L (21-32); Estimated Glom Filtration Rate 66 ML/MIN; Glucose 93 MG/DL (74-106); Osmolality,Calculated 281.1 MOS/KG (273-304); Potassium 3.5 MMOL/L (3.5-5.1); Sodium 142 MMOL/L (136-145); Total Protein 7.1 G/DL (6.4-8.2)
[2020-10-25] MEDS ORDERED: POTASSIUM CHLORIDE 20 MEQ TABLET PO ONE (07:20)
[2020-10-25] MEDS ORDERED: ASPIRIN CHEW 81 MG TABLET PO SCH (09:00)
[2020-10-25] MEDS ORDERED: PANTOPRAZOLE 40 MG TABLET PO SCH (09:00)
[2020-10-25] MEDS ORDERED: POTASSIUM CHLORIDE 20 MEQ TABLET PO SCH (09:00)
[2020-10-25] MEDS ORDERED: SACUBITRIL/VALSARTAN 49-51 MG TABLET PO SCH (09:00)
[2020-10-25] MEDS ORDERED: PROPRANOLOL 20 MG TABLET PO SCH (09:00)
[2020-10-25] MEDS ORDERED: FERROUS SULFATE 325 MG TABLET PO SCH (09:00)
[2020-10-25] MEDS ORDERED: CHOLECALCIFEROL 1,000 UNIT TABLET PO SCH (09:00)
[2020-10-25] MEDS ORDERED: MAGNESIUM CHLORIDE 64 MG TABLET PO SCH ×2 (09:00)
[2020-10-25] MEDS ORDERED: FUROSEMIDE 20 MG TABLET PO SCH (09:00)
[2020-10-25] MEDS: ASCORBIC ACID 500 MG TABLET PO SCH (09:31)
[2020-10-25] MEDS: INSULIN LISPRO 100 UNIT/ML SUBCUT SCH (09:33)
[2020-10-25] MEDS: MESALAMINE 400 MG PO SCH (09:34)
[2020-10-25 11:47] VITALS: BP 115/67
== END 2020-10-25 11:58 | disposition home or self-care (01) ==
LOC: SUATTDRO → EDUNIT# → N.ED 12:15 → N.TELEN 12:15 → SUATTDRO 16:58 → N.TELEN 20:40
PROVIDERS: ADMIT Internal Medicine; ATTEND Hospitalist

== ENCOUNTER 2020-11-13 14:29 | Observation (INO) ==
[2020-11-13 15:05] LABS: Basophils % 0.3 % (0.0-0.8); Eosinophils # 0.2 10*3/uL (0.0-0.87); Eosinophils % 1.8 % (0.00-10.9); Hemoglobin 11.5 GM/DL (12.0-16.0); Immature Granulocytes % 0.2 %; Immature Granulocytes Absolute 0.02 #; Lymphocytes # 3.1 10*3/uL (1.4-4.0); Lymphocytes % 33.7 % (21.3-54.2); Mean Corpuscular HGB Conc 31.9 GM/DL (32-36); Mean Corpuscular Volume 85.5 FL (87-102); Mean Platelet Volume 10.3 FL (9.6-12.0); Platelet Count 299 T/CUMM (130-400); Red Blood Count 4.21 MC/CUMM (3.8-5.5); Red Cell Distribution Width 15.3 % (9.3-17.3); White Blood Count 9.3 T/CUMM (4-12)
[2020-11-13 15:12] LABS: PT Patient Result 11.2 SECS (10.5-12.0)
[2020-11-13 15:57] LABS: Alanine Aminotransferase 29 U/L (13-56); Albumin 3.9 G/DL (3.4-5.0); Alkaline Phosphatase 175 U/L (45-117); Aspartate Amino Transferase 14 U/L (0-37); Bilirubin,Total < 0.39 MG/DL (0.20-1.00); Blood Urea Nitrogen 15 MG/DL (7-18); Calcium 8.8 MG/DL (8.5-10.1); Carbon Dioxide 25 MMOL/L (21-32); Estimated Glom Filtration Rate 46 ML/MIN; Glucose 205 MG/DL (74-106); Osmolality,Calculated 289.1 MOS/KG (273-304); Potassium 3.7 MMOL/L (3.5-5.1); Sodium 142 MMOL/L (136-145); Total Protein 8.3 G/DL (6.4-8.2)
[2020-11-13] MEDS ORDERED: GLUCAGON 1 MG VIAL IM PRN (20:09)
[2020-11-13] MEDS ORDERED: DEXTROSE 50% 25 GM/50 ML VIAL IV PRN (20:09)
[2020-11-13] MEDS ORDERED: ACETAMINOPHEN 325 MG TABLET PO PRN (20:10)
[2020-11-13] MEDS ORDERED: ZALEPLON 5 MG CAPSULE PO PRN (20:10)
[2020-11-13] MEDS ORDERED: POTASSIUM CHLORIDE 20 MEQ TABLET PO ONE (20:10)
[2020-11-13] MEDS ORDERED: hydrALAZINE 20 MG/1 ML VIAL IV PRN (20:10)
[2020-11-13] MEDS: PANTOPRAZOLE 40 MG VIAL IV SCH (23:06)
[2020-11-14] MEDS ORDERED: MECLIZINE 25 MG TABLET PO PRN (03:36)
[2020-11-14] MEDS ORDERED: PROMETHAZINE 25 MG TABLET PO PRN (03:36)
[2020-11-14 07:54] LABS: Basophils % 0.3 % (0.0-0.8); Eosinophils # 0.2 10*3/uL (0.0-0.87); Eosinophils % 2.7 % (0.00-10.9); Hemoglobin 11.7 GM/DL (12.0-16.0); Immature Granulocytes % 0.3 %; Immature Granulocytes Absolute 0.02 #; Lymphocytes # 2.3 10*3/uL (1.4-4.0); Lymphocytes % 29.2 % (21.3-54.2); Mean Corpuscular HGB Conc 31.6 GM/DL (32-36); Mean Corpuscular Volume 86.9 FL (87-102); Mean Platelet Volume 9.9 FL (9.6-12.0); Monocytes % 7.4 % (1.7-12.7); Neutrophils % 60.1 % (38.7-73.9); Platelet Count 247 T/CUMM (130-400); Red Blood Count 4.26 MC/CUMM (3.8-5.5); Red Cell Distribution Width 15.1 % (9.3-17.3); White Blood Count 7.8 T/CUMM (4-12)
[2020-11-14 08:32] LABS: Calcium 9.1 MG/DL (8.5-10.1); Osmolality,Calculated 279.4 MOS/KG (273-304); Potassium 4.5 MMOL/L (3.5-5.1)
[2020-11-14] MEDS: SACUBITRIL/VALSARTAN 49-51 MG TABLET PO SCH ×2 (09:03→21:32)
[2020-11-14] MEDS: MAGNESIUM CHLORIDE 64 MG TABLET PO SCH ×2 (09:04→21:31)
[2020-11-14] MEDS: FUROSEMIDE 20 MG TABLET PO SCH (09:04)
[2020-11-14] MEDS: MESALAMINE 800 MG TABLET PO SCH ×3 (09:04→21:32)
[2020-11-14] MEDS: ASCORBIC ACID 500 MG TABLET PO SCH ×2 (09:04→21:32)
[2020-11-14] MEDS: POTASSIUM CHLORIDE 20 MEQ TABLET PO SCH ×2 (09:04→21:32)
[2020-11-14] MEDS: FERROUS SULFATE 325 MG TABLET PO SCH (09:04)
[2020-11-14] MEDS: PROPRANOLOL 20 MG TABLET PO SCH (09:04)
[2020-11-14] MEDS: PANTOPRAZOLE 40 MG VIAL IV SCH ×2 (09:05→21:31)
[2020-11-14] MEDS: MEXILETINE 150 MG CAPSULE PO SCH ×2 (09:05→21:32)
[2020-11-14] MEDS: CHOLECALCIFEROL 1,000 UNIT TABLET PO SCH (09:09)
[2020-11-14] MEDS: INSULIN LISPRO 100 UNIT/ML SUBCUT SCH ×4 (11:25→21:34)
[2020-11-15 05:49] LABS: Basophils % 0.3 % (0.0-0.8); Eosinophils # 0.2 10*3/uL (0.0-0.87); Eosinophils % 2.7 % (0.00-10.9); Hematocrit 33.9 VOL% (35.7-47.0); Hemoglobin 10.4 GM/DL (12.0-16.0); Immature Granulocytes % 0.3 %; Immature Granulocytes Absolute 0.03 #; Lymphocytes # 3.2 10*3/uL (1.4-4.0); Lymphocytes % 36.5 % (21.3-54.2); Mean Corpuscular HGB Conc 30.7 GM/DL (32-36); Mean Corpuscular Volume 87.1 FL (87-102); Mean Platelet Volume 10.2 FL (9.6-12.0); Monocytes % 7.8 % (1.7-12.7); Neutrophils % 52.4 % (38.7-73.9); Platelet Count 262 T/CUMM (130-400); Red Blood Count 3.89 MC/CUMM (3.8-5.5); Red Cell Distribution Width 15.3 % (9.3-17.3); White Blood Count 8.8 T/CUMM (4-12)
[2020-11-15 06:19] LABS: Calcium 8.7 MG/DL (8.5-10.1); Osmolality,Calculated 283.3 MOS/KG (273-304); Potassium 4.6 MMOL/L (3.5-5.1)
[2020-11-15 07:37] VITALS: BP 113/71
[2020-11-15] MEDS: INSULIN LISPRO 100 UNIT/ML SUBCUT SCH (08:04)
[2020-11-15] MEDS: MEXILETINE 150 MG CAPSULE PO SCH (08:33)
[2020-11-15] MEDS: MAGNESIUM CHLORIDE 64 MG TABLET PO SCH (08:34)
[2020-11-15] MEDS: MESALAMINE 800 MG TABLET PO SCH (08:34)
[2020-11-15] MEDS: FERROUS SULFATE 325 MG TABLET PO SCH (08:34)
[2020-11-15] MEDS: ASCORBIC ACID 500 MG TABLET PO SCH (08:34)
[2020-11-15] MEDS: PROPRANOLOL 20 MG TABLET PO SCH (08:34)
[2020-11-15] MEDS: POTASSIUM CHLORIDE 20 MEQ TABLET PO SCH (08:34)
[2020-11-15] MEDS: CHOLECALCIFEROL 1,000 UNIT TABLET PO SCH (08:34)
[2020-11-15] MEDS: SACUBITRIL/VALSARTAN 49-51 MG TABLET PO SCH (08:34)
[2020-11-15] MEDS: FUROSEMIDE 20 MG TABLET PO SCH (08:35)
[2020-11-15] MEDS: PANTOPRAZOLE 40 MG VIAL IV SCH (08:35)
== END 2020-11-15 11:16 | disposition home or self-care (01) ==
LOC: N.ED 14:29 → N.EDINP 14:29 → N.5E 23:30
PROVIDERS: ADMIT Internal Medicine; ATTEND Internal Medicine